=== PATIENT | male | born 1940 | race Hispanic/Latino ===

== ENCOUNTER 2017-10-07 08:38 | Day surgery (SDC) | payer OTHER ==
[2017-10-05 08:48] VITALS: BP 152/73
[2017-10-05 09:03] LABS: BASOPHILS % (AUTO) 0.2 % (0.0-5.0); EOSINOPHILS % (AUTO) 2.7 % (0.0-8.0); HEMATOCRIT 33.8 % (42-54); LYMPHOCYTES % (AUTO) 20.4 % (21.0-51.0); MEAN CORPUSCULAR HEMOGLOBIN 29.6 pg (27.0-33.0); MEAN CORPUSCULAR HGB CONC 33.9 g/dL (32.0-36.0); MEAN CORPUSCULAR VOLUME 87.3 fL (79-99); MONOCYTES % (AUTO) 7.2 % (3.0-13.0); NEUTROPHILS % (AUTO) 69.5 % (40.0-77.0); PLATELET COUNT (AUTO) 219 K/uL (130-400); RED BLOOD CELL COUNT(AUTO) 3.87 MIL/uL (4.50-6.20); RED CELL DISTRIBUTION WIDTH 15.3 % (11.0-15.5); WHITE BLOOD COUNT (AUTO) 7.8 K/uL (4.8-10.8)
[2017-10-05 09:10] LABS: APPEARANCE,URINE Clear (CLEAR); BILIRUBIN,URINE Negative (NEGATIVE); COLOR,URINE Yellow (YELLOW); GLUCOSE, URINE (UA) Negative (NEGATIVE); KETONES,URINE Negative (NEGATIVE); LEUKOCYTE ESTERASE ,URINE Negative (NEGATIVE); NITRATE,URINE Negative (NEGATIVE); OCCULT BLOOD,URINE Negative (NEGATIVE); PROTEIN,URINE Negative (NEGATIVE); UROBILINOGEN,URINE 0.2 mg/dL (0.2-1.0)
[2017-10-05 09:15] LABS: CREATININE 1.3 mg/dL (0.5-1.5); INR 1.22 (0.85-1.15); PARTIAL THROMBOPLASTIN TIME 30.1 SEC (26.3-35.5); POTASSIUM 3.9 mmol/L (3.5-5.1); PROTHROMBIN TIME 12.8 SEC (9.6-11.6)
[2017-10-07] VITALS (11 sets, daily range): BP systolic 132–174; BP diastolic 54–81
[~2017-10-07] VITALS: Ht 168.9 cm; Wt 91.4 kg
[~2017-10-07 08:38] MED LIST: ATOR40TA71 PO; BACL10TA PO; CILO100T PO; FERR325T22 PO; GABA-529 PO; HYDR-4060 PO; INSU100V3 SQ; INSU300I SQ; LEVO112T7 PO; LEVO5TAB13 PO; LOSA100T29 PO; METO-391 PO; SERT50TA12 PO; SOLI5 PO; TAMS0.4C32 PO; WARF4TAB72 PO
[2017-10-07] MEDS ORDERED: SODIUM CHLORIDE 0.9% 1000ML 1,000 ML IV ONE (12:45)
[2017-10-07] MEDS ORDERED: IOPAMIDOL-370 100 ML VIAL IV ONE (13:07)
[2017-10-07] MEDS ORDERED: NITROGLYCERIN 5 MG/ML 10 ML VIAL IV ONE (13:07)
[2017-10-07] MEDS ORDERED: ISOVUE-370 50ML VIAL IV ONE (13:07)
[2017-10-07] MEDS ORDERED: HEPARIN SODIUM 1000UNIT/ML 10ML VIAL ONE (13:07)
[2017-10-07] MEDS ORDERED: LIDOCAINE HCL 2% 20ML ONE (13:08)
[2017-10-07] MEDS ORDERED: BIVALIRUDIN 250 MG/VIAL IV ONE (13:24)
[2017-10-07] MEDS ORDERED: SODIUM CHLORIDE 0.9% 1000ML 1,000 ML IV SCH (14:35)
[2017-10-07] MEDS ORDERED: GLUCAGON 1MG KIT 1 MG ML IM PRN (14:45)
[2017-10-07] MEDS ORDERED: DEXTROSE 50%-WATER 50 ML DISP.SYRIN IV PRN (14:45)
== END 2017-10-07 19:50 | disposition home or self-care (01) ==
LOC: DAH 08:38
PROVIDERS: ATTEND Internal Medicine Cardiovascular Disease
DX: I25.10 Atherosclerotic heart disease of native coronary artery without angina pectoris (principal); I35.0 Nonrheumatic aortic (valve) stenosis; I48.0 Paroxysmal atrial fibrillation; Z79.899 Other long term (current) drug therapy; Z68.32 Body mass index [BMI] 32.0-32.9, adult; E11.42 Type 2 diabetes mellitus with diabetic polyneuropathy; E11.51 Type 2 diabetes mellitus with diabetic peripheral angiopathy without gangrene; Z79.4 Long term (current) use of insulin; Z95.1 Presence of aortocoronary bypass graft; E55.9 Vitamin D deficiency, unspecified; Z79.01 Long term (current) use of anticoagulants
CPT/HCPCS: 36415; 71045; 80048; 81003; 82948 ×2; 85025; 85610; 85730; 93005; 93455; A4606; C1760; C1769; C1894; J1644; J3490 ×2; J7030; Q9967 ×2; J0583